=== PATIENT | male | born 1995 | race African-American/Black ===

== ENCOUNTER 2017-10-26 16:50 | Emergency (ER) | payer SELFPAY ==
[2017-10-26 17:22] LABS: BILIRUBIN,URINE SMALL (NEG); CLARITY,URINE CLEAR; COLOR,URINE AMBER; GLUCOSE,URINE NEGATIVE (NEG); NITRITE,URINE NEGATIVE (NEG); PROTEIN,URINE 30 mg/dL (NEG-TRACE)
[2017-10-26] MEDS: metroNIDAZOLE 500 MG TABLET PO (17:23)
[2017-10-26] MEDS: cefTRIAXone IM 250 MG VIAL IM (17:23)
[2017-10-26] MEDS: AZITHROMYCIN 250 MG TABLET. PO (17:23)
[2017-10-26 17:30] LABS: BACTERIA,URINE 0 /HPF (0-FEW); RBC,URINE 0 /HPF (0-2); SQUAMOUS EPITHELIAL CELL,UR OCC /LPF
== END 2017-10-26 17:52 | disposition home or self-care (01) ==
LOC: ER 16:50
DX: Z20.2 Contact with and (suspected) exposure to infections with a predominantly sexual mode of transmission (principal); G43.909 Migraine, unspecified, not intractable, without status migrainosus; F12.10 Cannabis abuse, uncomplicated; F10.10 Alcohol abuse, uncomplicated
CPT/HCPCS: 81001; 87491; 87591; 96372; 99284; J0696; Q0144

== ENCOUNTER 2018-10-15 18:44 | Emergency (ER) | payer SELFPAY ==
[~2018-10-15] VITALS: Ht 180.3 cm; Wt 72.6 kg
[~2018-10-15 18:44] MED LIST: CIPR500T94 PO
[2018-10-15 19:20] VITALS: BP 142/86
== END 2018-10-15 20:32 | disposition left against medical advice (07) ==
LOC: ER 18:44
DX: M79.675 Pain in left toe(s) (principal); Z53.21 Procedure and treatment not carried out due to patient leaving prior to being seen by health care provider

== ENCOUNTER 2019-02-24 12:42 | Emergency (ER) | payer SELFPAY ==
[~2019-02-24] VITALS: Ht 177.8 cm; Wt 66.2 kg
[2019-02-24] MEDS ORDERED: MORPHINE SULFATE 4 MG/ML VIAL. IV ONE ×2 (14:00→16:15)
[2019-02-24] MEDS ORDERED: IV NORMAL SALINE 1000ML BAG 1,000 ML IV ONE (14:00)
[2019-02-24] MEDS ORDERED: ONDANSETRON PF 4 MG/2 ML VIAL. IV ONE (14:00)
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
[2019-02-24] MEDS ORDERED: IOHEXOL 300 MG/ML 100ML VIAL. IV ONE (14:30)
[2019-02-24] MEDS ORDERED: CONTRAST GIVEN. MC PRN (14:30)
[2019-02-24 14:34] LABS: BASO % 0 % (0-3); EOS % 0 % (0-3); HEMATOCRIT 43.3 % (39.0-53.0); HEMOGLOBIN 14.3 g/dL (13.0-17.5); LYMPH # 1.4 x10^3/uL (1.0-4.8); LYMPH % 15 % (24-48); MEAN CORPUSCULAR HEMOGLOBIN 29 pg (25-35); MEAN CORPUSCULAR HGB CONC 33 g/dL (31-37); MEAN CORPUSCULAR VOLUME 86 fL (79-100); MONO % 11 % (0-9); NEUT % 74 % (31-73); PLATELET COUNT 153 x10^3/uL (140-400); RED BLOOD COUNT 5.02 x10^6/uL (4.30-5.70); RED CELL DISTRIBUTION WIDTH 13.2 % (11.5-14.5); WHITE BLOOD COUNT 9.4 x10^3/uL (4.0-11.0)
[2019-02-24 14:35] LABS: BILIRUBIN,URINE NEGATIVE (NEG); CLARITY,URINE CLEAR; COLOR,URINE YELLOW; NITRITE,URINE NEGATIVE (NEG); PROTEIN,URINE NEGATIVE (NEG-TRACE); UROBILINOGEN,URINE 0.2 mg/dL (0.2 mg/dL)
[2019-02-24 14:40] LABS: BACTERIA,URINE 0 /HPF (0-FEW); RBC,URINE 0 /HPF (0-2); WBC,URINE 0 /HPF (0-4)
[2019-02-24 14:43] LABS: PROTHROMBIN TIME PATIENT 12.6 SEC (11.7-14.0)
[2019-02-24 14:44] LABS: POTASSIUM 3.5 mmol/L (3.5-5.1)
[2019-02-24 15:00] LABS: ALBUMIN 3.9 g/dL (3.4-5.0); ALBUMIN/GLOBULIN RATIO 1.1 (1.0-1.7); TOTAL BILIRUBIN 0.5 mg/dL (0.2-1.0); TOTAL PROTEIN 7.6 g/dL (6.4-8.2)
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
[2019-02-24] MEDS ORDERED: DIPHTH,PERTUSS(ACELL),TET TOX 0.5 ML DISP.SYRIN. VAX IM ONE (16:45)
[2019-02-24 17:15] VITALS: BP 124/86
[2019-02-24] MEDS ORDERED: METH4TAB2 PO (17:21)
[2019-02-24] MEDS ORDERED: ONDA4TAB12 PO (17:22)
[2019-02-24] MEDS ORDERED: HYDR-3164 PO (17:22)
[2019-02-24] MEDS ORDERED: predniSONE 10 MG TABLET PO STA (17:27)
[2019-02-24] MEDS ORDERED: HYDROcodone/APAP 5/325MG 1 TAB TABLET PO ONE (18:00)
[2019-02-24] MEDS ORDERED: IOHEXOL 300 MG/ML 100ML VIAL. ONE (18:38)
== END 2019-02-24 17:51 | disposition home or self-care (01) ==
LOC: ER 12:42
DX: S02.80XA Fracture of other specified skull and facial bones, unspecified side, initial encounter for closed fracture (principal); R07.81 Pleurodynia; R06.02 Shortness of breath; R10.12 Left upper quadrant pain; G43.909 Migraine, unspecified, not intractable, without status migrainosus; F10.20 Alcohol dependence, uncomplicated; Y90.9 Presence of alcohol in blood, level not specified; Y04.0XXA Assault by unarmed brawl or fight, initial encounter; Y93.89 Activity, other specified; Y92.098 Other place in other non-institutional residence as the place of occurrence of the external cause; Y99.8 Other external cause status
CPT/HCPCS: 36415; 70450; 70486; 71111; 74177; 80053; 81001; 85025; 85610; 85730; 90471; 90715; 96374; 96375; 96376; 99285; J2270; J2405; J7030; J7512; Q9967; 99284-25